=== PATIENT | female | born 1960 | race Caucasian/White ===

== ENCOUNTER → 2016-09-05 | Outpatient (CLI) | payer OTHER ==
--- NOTE | 2016-09-05 13:43 | RAD ---
EXAM DESCRIPTION: Wrist,Right 3 Views CLINICAL HISTORY: 56 years, Female, PAIN IN RIGHT WRIST COMPARISON: None TECHNIQUE: AP/ lateral/ oblique views of the right wrist. FINDINGS: Right wrist study shows no fracture or dislocation. A discrete oval cystic structure in the mid navicular is present with a thin sclerotic margin consistent with a simple bone cyst or a subcortical degenerative cyst. No further workup is recommended. The scapholunate articulation is normal. The radiocarpal articulation is preserved and the ulnar styloid and radial ulnar articulation are normal. No soft tissue masses are seen. IMPRESSION: 1. Circumscribed subcentimeter cyst within the navicular without evidence of osteonecrosis or other abnormality. 2. No acute fracture or dislocation seen. Electronically signed by: Siddhartha Sam MD 09/05/2016 1:42 PM CDT
== END | disposition home or self-care (01) ==
LOC: RAD 09:16
PROVIDERS: ATTEND Orthopaedic Surgery
DX: M25.531 Pain in right wrist (principal)

== ENCOUNTER → 2017-01-07 | Outpatient (CLI) | payer OTHER ==
--- NOTE | 2017-01-07 18:01 | CT ---
PROCEDURE: Head HISTORY: HEADACHE Indication: Same as above Comparison: None Technique: CT of the head was done without intravenous contrast was done in the orthogonal planes. This exam was performed according to our departmental dose-optimization program, which includes automated exposure control, adjustment of the mA and/or KV according to the patient's size and/or use of iterative reconstruction technique. FINDINGS: There is no intracranial hemorrhage, midline shift mass effect or acute focal infarct. If clinical concern exists regarding an acute ischemic/vascular pathology being responsible for patient's symptomatology, an MRI of the brain is more sensitive than the current study, in ruling out such a possibility. There is good lane/white matter differentiation. The ventricular system is normal. The mastoid air cells show changes of mild bilateral mastoiditis . The paranasal sinuses are unremarkable . There is no visualization of acute fractures involving the calvarium or the skull base. IMPRESSION: There is no acute intracranial abnormality. Electronically signed by: Leland Geller MD 01/07/2017 6:00 PM CDT Workstation: [id number]
--- NOTE | 2017-01-07 18:17 | CT ---
PROCEDURE: Maxillofacial Clinical History: HEADACHE Indication: Same as above Comparison: CT of the head done on the same day Technique: CT of the facial bones was done, without intravenous contrast in the axial, sagittal and coronal planes. This exam was performed according to our departmental dose-optimization program, which includes automated exposure control, adjustment of the mA and/or KV according to the patient's size and/or use of iterative reconstruction technique. Findings: There is no CT evidence of acute fractures or dislocations involving the facial bones. There is presence of large retention cysts in the visualized bilateral maxillary sinuses suggestive of chronic sinusitis. Note is made of changes of mild bilateral mastoiditis There is no visualization of air fluid levels in the paranasal sinuses. The bilateral mastoid air cells are unremarkable . The bilateral temporomandibular joints are intact. The visualized cervical spine is unremarkable, with intact craniovertebral junction . Impression: There is no CT evidence of acute fractures or dislocations involving the facial bones. There is presence of large retention cysts in the visualized bilateral maxillary sinuses suggestive of chronic sinusitis. Note is made of changes of mild bilateral mastoiditis Location of Interpretation: [facility]. Electronically signed by: Leland Geller MD 01/07/2017 6:16 PM CDT Workstation: [id number]
== END | disposition home or self-care (01) ==
LOC: CT 17:15
PROVIDERS: ATTEND Physician Assistant
DX: R51 Headache (principal); J32.0 Chronic maxillary sinusitis